=== PATIENT | female | born 1935 | race Caucasian/White ===

== ENCOUNTER 2020-03-09 11:05 | Inpatient (IN) | payer MEDICARE ==
[~2020-03-09] VITALS: Ht 157.5 cm; Wt 70.3 kg
[~2020-03-09 11:05] MED LIST: ADULT LOW DOSE81 MG PO; COREG 3.125M3.125 MG PO; ELIQUIS2.5 MG PO; FOLIC ACID0.8 MG PO; HYDRALAZINE HCL50 MG PO; LEVAQUIN750 MG PO; NEURONTIN 100100 MG PO; NORVASC10 MG PO; NOVOLOG MI100 UNIT/1 SQ; PRAVACHOL80 MG PO; SYNTHROID100 MCG PO; VITAMIN B-121000 MC1 PO
[2020-03-09 12:12] LABS: HEMOGLOBIN 13.1 gm/dl (12.3-15.3); RED BLOOD COUNT 4.63 M/UL (4.00-5.10); WHITE BLOOD COUNT 9.4 K/UL (4.5-11.0)
[2020-03-10] MEDS ORDERED: PROTONIX40 MG PO (00:23)
[2020-03-10] MEDS ORDERED: CARDIZEM LA240 MG PO (00:25)
[2020-03-10] MEDS ORDERED: PRAVASTATIN SOD80 MG PO (00:25)
[2020-03-10] MEDS ORDERED: CARVEDILOL12.5 MG PO (00:27)
[2020-03-10] MEDS ORDERED: ELIQUIS5 MG PO (00:28)
[2020-03-10] MEDS ORDERED: GABAPENTIN300 MG PO ×2 (00:29)
[2020-03-10] MEDS ORDERED: HYDROCODON-ACE1 EAC2 PO (00:30)
[2020-03-10] MEDS ORDERED: FUROSEMIDE40 MG PO (00:31)
[2020-03-10 04:07] LABS: HEMOGLOBIN 12.4 gm/dl (12.3-15.3); RED BLOOD COUNT 4.41 M/UL (4.00-5.10); WHITE BLOOD COUNT 7.3 K/UL (4.5-11.0)
[2020-03-15] MEDS ORDERED: DILTIAZEM 24HR120 M1 PO (11:59)
[2020-03-15] MEDS ORDERED: LANTUS INS100 UTS/M1 SQ (11:59)
[2020-03-15] MEDS ORDERED: HYDROCODON-ACE1 EAC4 PO ×3 (11:59→12:12)
[2020-03-15] MEDS ORDERED: LIDOCAINE PAIN1 EACH TOP (12:33)
[2020-03-22] MEDS ORDERED: HYDROCODON-ACE1 EAC4 PO (13:01)
[2020-03-22] MEDS ORDERED: LIDOCAINE PAIN1 EACH TOP (13:02)
[2020-03-22] MEDS ORDERED: NOVOLOG MI100 UNIT/1 SQ (13:37)
[2020-03-22] MEDS ORDERED: CARDIZEM LA240 MG PO (13:38)
[2020-03-22] MEDS ORDERED: COQ10 PO (13:38)
[2020-03-22] MEDS ORDERED: FOLIC ACID0.8 MG PO (13:39)
[2020-03-22] MEDS ORDERED: ISORDIL TAB 1010 MG PO (13:40)
[2020-04-22] MEDS ORDERED: ALENDRONATE SOD35 MG PO (13:42)
== END 2020-03-15 13:22 | disposition home or self-care (01) | DRG 542 ==
LOC: ER1 11:05 → ZEROF 15:35 → PROG CARE 15:35
PROVIDERS: Emergency Medicine; Internal Medicine; Physician Assistant Medical; ADMIT Internal Medicine
DX: M48.54XA Collapsed vertebra, not elsewhere classified, thoracic region, initial encounter for fracture (principal); G93.41 Metabolic encephalopathy; N17.9 Acute kidney failure, unspecified; I48.20 Chronic atrial fibrillation, unspecified; Z20.822 Contact with and (suspected) exposure to COVID-19; M51.34 Other intervertebral disc degeneration, thoracic region; E11.649 Type 2 diabetes mellitus with hypoglycemia without coma; R00.1 Bradycardia, unspecified; I25.10 Atherosclerotic heart disease of native coronary artery without angina pectoris; G89.29 Other chronic pain; N18.30 Chronic kidney disease, stage 3 unspecified; E03.9 Hypothyroidism, unspecified; E78.5 Hyperlipidemia, unspecified; I12.9 Hypertensive chronic kidney disease with stage 1 through stage 4 chronic kidney disease, or unspecified chronic kidney disease; E11.22 Type 2 diabetes mellitus with diabetic chronic kidney disease; Z90.49 Acquired absence of other specified parts of digestive tract; Z79.01 Long term (current) use of anticoagulants; Z95.1 Presence of aortocoronary bypass graft; Z79.4 Long term (current) use of insulin; Z79.82 Long term (current) use of aspirin; Z79.890 Hormone replacement therapy; Z79.899 Other long term (current) drug therapy; Z83.3 Family history of diabetes mellitus; Z82.49 Family history of ischemic heart disease and other diseases of the circulatory system
CPT/HCPCS: 36415; 70450; 72128; 72131; 72146; 80048; 80053; 81001; 82550; 82553; 82962; 83036; 83735; 83874; 84132; 84439; 84443; 84484; 85025; 85027; 87086; 93005; 96372; 96374; 96375; 96376; 97116; 97162; 99285; G0378; J1170; J2060; J2270; J2310; J7030; J7070; U0002

== ENCOUNTER → 2020-03-21 | Outpatient (CLI) | payer MEDICARE ==
[~2020-03-21] MED LIST changes: +ALENDRONATE SOD35 MG PO; +CARDIZEM LA240 MG PO; +CARVEDILOL12.5 MG PO; +COQ-10100 MG PO; +COQ10 PO; +DILTIAZEM 24HR120 M1 PO; +DILTIAZEM 24HR180 M1 PO; +DOCUSATE SODIU250 MG PO; +ECOTRIN81 MG PO; +ELIQUIS5 MG PO; +FOLIC ACID PO; +FUROSEMIDE40 MG PO; +GABAPENTIN300 MG PO; +HYDROCODON-ACE1 EAC2 PO; +HYDROCODON-ACE1 EAC4 PO; +ISORDIL TAB 1010 MG PO; +ISOSORBIDE DINI10 MG PO; +LANTUS INS100 UTS/M1 SQ; +LANTUS100 UNIT/1 SQ; +LASIX 40 MG TAB40 MG PO; +LEVOTHYROXINE100 MC2 PO; +LIDOCAINE PAIN1 EACH TOP; +PRAVASTATIN SOD80 MG PO; +PROTONIX40 MG PO
== END ==
LOC: EXRD 08:30
DX: M81.0 Age-related osteoporosis without current pathological fracture (principal)
CPT/HCPCS: 77080

== ENCOUNTER → 2020-03-22 | Outpatient (CLI) | payer MEDICARE ==
[2020-03-22 12:58] LABS: RED BLOOD COUNT 4.57 M/UL (4.00-5.10); WHITE BLOOD COUNT 7.3 K/UL (4.5-11.0)
== END ==
LOC: OPSV2 11:30
PROVIDERS: Orthopaedic Surgery
DX: Z01.818 Encounter for other preprocedural examination (principal); S22.069A Unspecified fracture of T7-T8 vertebra, initial encounter for closed fracture; M81.0 Age-related osteoporosis without current pathological fracture; R94.31 Abnormal electrocardiogram [ECG] [EKG]; I48.91 Unspecified atrial fibrillation
CPT/HCPCS: 36415; 80048; 85025; 93005

== ENCOUNTER → 2020-03-25 | Day surgery (SDC) | payer MEDICARE ==
[~2020-03-25] VITALS: Ht 160 cm; Wt 70.3 kg
== END | disposition home or self-care (01) ==
LOC: OR 06:44
DX: M80.08XA Age-related osteoporosis with current pathological fracture, vertebra(e), initial encounter for fracture (principal); I25.10 Atherosclerotic heart disease of native coronary artery without angina pectoris; I13.0 Hypertensive heart and chronic kidney disease with heart failure and stage 1 through stage 4 chronic kidney disease, or unspecified chronic kidney disease; N18.30 Chronic kidney disease, stage 3 unspecified; I50.9 Heart failure, unspecified; E78.5 Hyperlipidemia, unspecified; E11.9 Type 2 diabetes mellitus without complications; I48.91 Unspecified atrial fibrillation; I25.2 Old myocardial infarction; J44.9 Chronic obstructive pulmonary disease, unspecified; E03.9 Hypothyroidism, unspecified; M19.90 Unspecified osteoarthritis, unspecified site; Z79.4 Long term (current) use of insulin; Z86.73 Personal history of transient ischemic attack (TIA), and cerebral infarction without residual deficits; Z95.1 Presence of aortocoronary bypass graft; Z79.82 Long term (current) use of aspirin; Z79.899 Other long term (current) drug therapy; Z90.49 Acquired absence of other specified parts of digestive tract; Z98.61 Coronary angioplasty status
CPT/HCPCS: 36415; 82962; 86850; 86900; 86901; J0690; J1100; J2001; J2370; J2405; J2704; J2710; J3010; J7030; J7120; Q9962

== ENCOUNTER → 2020-04-15 | Day surgery (SDC) | payer MEDICARE ==
[~2020-04-15] VITALS: Ht 160 cm; Wt 70.3 kg
== END | disposition home or self-care (01) ==
LOC: OR 06:44
PROVIDERS: Orthopaedic Surgery
PROC: 0PU43JZ Supplement Thoracic Vertebra with Synthetic Substitute, Percutaneous Approach (ICD-10-PCS; principal; 2020-04-15 11:15)
DX: M80.88XA Other osteoporosis with current pathological fracture, vertebra(e), initial encounter for fracture (principal); I12.9 Hypertensive chronic kidney disease with stage 1 through stage 4 chronic kidney disease, or unspecified chronic kidney disease; E11.22 Type 2 diabetes mellitus with diabetic chronic kidney disease; N18.30 Chronic kidney disease, stage 3 unspecified; E78.5 Hyperlipidemia, unspecified; I48.91 Unspecified atrial fibrillation; I25.10 Atherosclerotic heart disease of native coronary artery without angina pectoris; E03.9 Hypothyroidism, unspecified; Z79.4 Long term (current) use of insulin; Z79.82 Long term (current) use of aspirin; Z79.891 Long term (current) use of opiate analgesic; Z79.01 Long term (current) use of anticoagulants; Z79.899 Other long term (current) drug therapy; Z20.822 Contact with and (suspected) exposure to COVID-19
CPT/HCPCS: 82962; J0690; J1100; J2001; J2405; J2704; J2710; J3010; J7030; J7120; Q9962

== ENCOUNTER 2020-04-24 10:02 | Day surgery (SDC) | payer MEDICARE ==
[~2020-04-24] VITALS: Ht 160 cm; Wt 70.3 kg
[~2020-04-24 10:02] MED LIST changes: -COQ-10100 MG PO; -DILTIAZEM 24HR180 M1 PO; -DOCUSATE SODIU250 MG PO; -ECOTRIN81 MG PO; -FOLIC ACID PO; -ISOSORBIDE DINI10 MG PO; -LANTUS100 UNIT/1 SQ; -LASIX 40 MG TAB40 MG PO; -LEVOTHYROXINE100 MC2 PO
[2020-04-24 10:58] LABS: HEMOGLOBIN 14.2 gm/dl (12.3-15.3); RED BLOOD COUNT 4.87 M/UL (4.00-5.10); WHITE BLOOD COUNT 8.8 K/UL (4.5-11.0)
[2020-04-24] MEDS ORDERED: ECOTRIN81 MG PO (12:57)
[2020-04-24] MEDS ORDERED: COQ-10100 MG PO (12:58)
[2020-04-24] MEDS ORDERED: ELIQUIS5 MG PO (12:58)
[2020-04-24] MEDS ORDERED: FOLIC ACID PO (12:59)
[2020-04-24] MEDS ORDERED: LASIX 40 MG TAB40 MG PO (13:36)
[2020-04-24] MEDS ORDERED: GABAPENTIN300 MG PO (13:37)
[2020-04-24] MEDS ORDERED: LANTUS100 UNIT/1 SQ (13:38)
[2020-04-24] MEDS ORDERED: LEVOTHYROXINE100 MC2 PO (13:39)
[2020-04-24] MEDS ORDERED: PRAVASTATIN SOD80 MG PO (13:40)
[2020-04-24] MEDS ORDERED: DILTIAZEM 24HR180 M1 PO (13:40)
[2020-04-24] MEDS ORDERED: ISOSORBIDE DINI10 MG PO (13:41)
[2020-04-24] MEDS ORDERED: CARVEDILOL12.5 MG PO (13:41)
[2020-04-24] MEDS ORDERED: DOCUSATE SODIU250 MG PO (20:56)
--- NOTE | 2020-04-25 03:50 | NUR ---
UPON ADMISSION TO THE FLOOR, PT REQUESTED TO HAVE EXTERNAL CATHETER PLACED R/T DISCOMFORT FROM SURGERY. PT HAS USED ENTIRE NIGHT WITH NO ISSUES NOTED.
[2020-04-25] MEDS ORDERED: LANTUS100 UNIT/1 SQ (12:18)
== END 2020-04-25 14:40 | disposition home or self-care (01) ==
LOC: OR 10:02 → M/S 19:13 → OR 04-25 14:40
PROVIDERS: Orthopaedic Surgery
PROC: 0PU43JZ Supplement Thoracic Vertebra with Synthetic Substitute, Percutaneous Approach (ICD-10-PCS; principal; 2020-04-24 16:30)
DX: M80.88XA Other osteoporosis with current pathological fracture, vertebra(e), initial encounter for fracture (principal); I11.0 Hypertensive heart disease with heart failure; I50.9 Heart failure, unspecified; I25.10 Atherosclerotic heart disease of native coronary artery without angina pectoris; E78.5 Hyperlipidemia, unspecified; I48.91 Unspecified atrial fibrillation; E03.9 Hypothyroidism, unspecified; E11.9 Type 2 diabetes mellitus without complications; N28.9 Disorder of kidney and ureter, unspecified; K21.9 Gastro-esophageal reflux disease without esophagitis; G89.29 Other chronic pain; M19.90 Unspecified osteoarthritis, unspecified site; D64.9 Anemia, unspecified; Z95.5 Presence of coronary angioplasty implant and graft; Z95.1 Presence of aortocoronary bypass graft; Z79.82 Long term (current) use of aspirin; Z79.01 Long term (current) use of anticoagulants; Z79.891 Long term (current) use of opiate analgesic; Z79.4 Long term (current) use of insulin; Z79.899 Other long term (current) drug therapy; Z20.822 Contact with and (suspected) exposure to COVID-19
CPT/HCPCS: 36415; 71045; 80048; 81001; 82962; 85025; 93005; J0690; J1100; J2001; J2405; J2704; J2710; J3010; J7120; Q9962

== ENCOUNTER 2020-05-16 10:38 | Emergency (ER) | payer MEDICARE ==
[~2020-05-16 10:38] MED LIST changes: +COQ-10100 MG PO; +DILTIAZEM 24HR180 M1 PO; +DOCUSATE SODIU250 MG PO; +ECOTRIN81 MG PO; +FOLIC ACID PO; +ISOSORBIDE DINI10 MG PO; +LANTUS100 UNIT/1 SQ; +LASIX 40 MG TAB40 MG PO; +LEVOTHYROXINE100 MC2 PO
[2020-05-16 11:45] LABS: HEMOGLOBIN 13.2 gm/dl (12.3-15.3); RED BLOOD COUNT 4.53 M/UL (4.00-5.10); WHITE BLOOD COUNT 6.3 K/UL (4.5-11.0)
[2020-05-16] MEDS ORDERED: HYDROCODON-ACE1 EAC4 PO (13:19)
== END 2020-05-16 14:06 | disposition home or self-care (01) ==
LOC: ER1 10:38
PROVIDERS: Emergency Medicine
DX: M48.56XA Collapsed vertebra, not elsewhere classified, lumbar region, initial encounter for fracture (principal); I10 Essential (primary) hypertension; E11.9 Type 2 diabetes mellitus without complications; I25.10 Atherosclerotic heart disease of native coronary artery without angina pectoris; Z98.1 Arthrodesis status; Z95.1 Presence of aortocoronary bypass graft; Z90.49 Acquired absence of other specified parts of digestive tract
CPT/HCPCS: 72128; 72131; 80053; 81001; 85025; 85652; 86140; 87086; 96374; 96375; 99284; J2270; J2405

== ENCOUNTER → 2020-06-11 | Outpatient (CLI) | payer MEDICARE | LOC: RAD 09:46 | DX: R05 Cough (principal); R06.02 Shortness of breath; J98.11 Atelectasis; J98.6 Disorders of diaphragm | CPT/HCPCS: 71046 ==

== ENCOUNTER 2021-08-20 04:00 | Inpatient (IN) | payer MEDICARE ==
[~2021-08-20] VITALS: Ht 160 cm; Wt 60.3 kg
[~2021-08-20 04:00] MED LIST changes: -FOLIC ACID PO; -LEVOTHYROXINE100 MC2 PO; +LEVOTHYROXINE100 MCG PO
[2021-08-20 05:00] LABS: HEMOGLOBIN 12.5 gm/dl (12.3-15.3); RED BLOOD COUNT 4.1 M/UL (4.00-5.10); WHITE BLOOD COUNT 10.6 K/UL (4.5-11.0)
[2021-08-20] MEDS ORDERED: HYDRALAZINE HCL10 MG PO (10:59)
[2021-08-20] MEDS ORDERED: LANTUS SOL100 UNIT/1 SQ (11:01)
[2021-08-20] MEDS ORDERED: CALCIUM 600 +1 EAC3 PO (11:01)
[2021-08-21 03:03] LABS: HEMOGLOBIN 12.9 gm/dl (12.3-15.3); RED BLOOD COUNT 4.25 M/UL (4.00-5.10)
[2021-08-21 03:05] LABS: WHITE BLOOD COUNT 7.9 K/UL (4.5-11.0)
[2021-08-22 03:41] LABS: HEMOGLOBIN 12.4 gm/dl (12.3-15.3); RED BLOOD COUNT 3.95 M/UL (4.00-5.10); WHITE BLOOD COUNT 8.8 K/UL (4.5-11.0)
[2021-08-23] MEDS ORDERED: ELIQUIS 2.5 MG2.5 MG PO (08:33)
[2021-08-23] MEDS ORDERED: AMLODIPINE BESYL5 MG PO (08:33)
[2021-08-23] MEDS ORDERED: ISOSORBIDE MONO60 MG PO (08:33)
[2021-08-23] MEDS ORDERED: OMNICEF 300 MG300 MG PO (08:35)
== END 2021-08-23 10:50 | disposition home or self-care (01) | DRG 303 ==
LOC: ER1 04:00 → M/S 09:09 → CDU 09:09 → M/S 11:11
PROVIDERS: Emergency Medicine; Internal Medicine; Physician Assistant; ADMIT Internal Medicine
PROC: B24BZZZ Ultrasonography of Heart with Aorta (ICD-10-PCS; principal; 2021-08-21)
DX: I25.119 Atherosclerotic heart disease of native coronary artery with unspecified angina pectoris (principal); I48.20 Chronic atrial fibrillation, unspecified; Z20.822 Contact with and (suspected) exposure to COVID-19; I16.1 Hypertensive emergency; N39.0 Urinary tract infection, site not specified; Z66 Do not resuscitate; I16.0 Hypertensive urgency; E78.5 Hyperlipidemia, unspecified; E11.22 Type 2 diabetes mellitus with diabetic chronic kidney disease; B96.20 Unspecified Escherichia coli [E. coli] as the cause of diseases classified elsewhere; E03.9 Hypothyroidism, unspecified; N18.30 Chronic kidney disease, stage 3 unspecified; I08.3 Combined rheumatic disorders of mitral, aortic and tricuspid valves; G89.29 Other chronic pain; I12.9 Hypertensive chronic kidney disease with stage 1 through stage 4 chronic kidney disease, or unspecified chronic kidney disease; I48.0 Paroxysmal atrial fibrillation; Z95.1 Presence of aortocoronary bypass graft; Z79.01 Long term (current) use of anticoagulants; Z79.82 Long term (current) use of aspirin; Z95.5 Presence of coronary angioplasty implant and graft; Z83.3 Family history of diabetes mellitus; Z82.49 Family history of ischemic heart disease and other diseases of the circulatory system; Z82.3 Family history of stroke; Z87.81 Personal history of (healed) traumatic fracture
CPT/HCPCS: ECHO; 36415; 71045; 71046; 80048; 80053; 81001; 82550; 82553; 82962; 83735; 84484; 85025; 85027; 87077; 87086; 87186; 93005; 93306; 97110; 97161; 99285; G0378; J0696